=== PATIENT | male | born 1935 | race Caucasian/White ===

== ENCOUNTER 2017-02-08 13:45 | Emergency (ER) | payer MEDICARE ==
[~2017-02-08] VITALS: Ht 175.3 cm; Wt 66.0 kg
[2017-02-08 14:00] VITALS: BP 189/93; PULSE 78; RESP 18; TEMP 98; O2SAT 100
[2017-02-08] MEDS ORDERED: ACETAMINOPHEN/HYDROcodone 325 MG/5 MG TAB PO ONE (14:00)
[2017-02-08] MEDS ORDERED: NORC5TAB PO (14:04)
[2017-02-08] MEDS ORDERED: CANEMIS (14:06)
--- NOTE | 2017-02-08 14:06 | PD ---
HPI Chief Complaint: Hip Injury Time Seen by Provider: 13:50 Travel History International Travel<30 days: No Contact w/Intl Traveler<30days: No History of Present Illness HPI Patient is a pleasant 81-year-old male here with complaint of right sided hip pain. Patient has been on vacation, travel in the [place] in a [place]. States that he's been doing a lot of sitting. Today he's been having posterior right sided hip pain that radiates down the buttock and posterior leg. When he went to get out of the RV at his rest stop, he was unable to get up due to the pain prompting EMS to be called. En route, they did not notice any deformity. Patient was given 8 mg morphine IV with improvement of his symptoms. He denies any recent falls, trauma. He does note some burning type numbness in the posterior buttock/leg. PFSH Past Medical History High Cholesterol: Yes Chest Pain: Yes Hypertension: Yes Past Surgical History Cardiac Surgery: Yes Social History Tobacco Use: No Allergies-Medications (Allergen,Severity, Reaction): Coded Allergies: No Known Allergies (Unverified , 02/08/17) Review of Systems Except as stated in HPI: all other systems reviewed are Neg Physical Exam Narrative GENERAL: Pleasant thin elderly male in no acute distress SKIN: Focused skin assessment warm/dry. HEAD: Normocephalic. EYES: No scleral icterus. No injection or drainage. ENT: . Mucous membranes pink and moist. NECK: Supple CARDIOVASCULAR: Regular rate and rhythm. RESPIRATORY: No accessory muscle use. MUSCULOSKELETAL: No midline tenderness to palpation of the spine. Patient has posterior tenderness over the SI joint which reproduces his symptoms. There is no obvious deformity, edema. Range of motion at the hip really does not exacerbate pain much, but a straight leg raise certainly does. Distal sensation , pulses intact. Patient able to ambulate without assistance in the ER. NEUROLOGICAL: Awake and alert. Motor grossly within normal limits. Normal speech. PSYCHIATRIC: Appropriate mood and affect; insight and judgment normal. Data Data Orders Acetamin-Hydrocod 325-5 Mg ([place] 5-325 (02/08/17 14:00) [facility] Medical Decision Making Medical Screen Exam Complete: Yes Emergency Medical Condition: Yes Medical Record Reviewed: Yes Differential Diagnosis Patient is a 81-year-old male with right sided hip pain after prolonged sitting. His exam is consistent with sciatica. There is no fall or trauma to suggest hip fracture, pelvic fracture or dislocation. Narrative Course Patient was given [place] in the ER and able to ambulate independently and will be discharged home. Diagnosis Primary Impression: Right sided sciatica Referrals: Primary Care Physician as needed Patient Instructions: General Instructions, Sciatica (ED) Additional Instructions: Tylenol, ibuprofen as needed for mild pain. [place] as needed for severe pain. Cane as needed to assist with gait. Med/Other Pt SpecificInfo: Prescription(s) given Scripts Cane/Mens 1 Mis Mis #1 Ea .route As Directed Prov:Sylvia Mendez MD 02/08/17 Hydrocodone-Acetaminophen ([place])5-325 mg Tab1-2 Tab PO Q6H PRN (PAIN) #20 TAB Ref 0 Prov:Sylvia Mendez MD 02/08/17 Disposition: 01 DISCHARGE HOME Condition: Stable Sylvia Mendez MD Feb 08, 2017 14:06
[2017-02-08] MEDS ORDERED: ATOR10TA15 PO (14:18)
[2017-02-08] MEDS ORDERED: ZETI10TA5 PO (14:18)
[2017-02-08] MEDS ORDERED: PLAV75TA29 PO (14:18)
== END 2017-02-08 14:57 | disposition home or self-care (01) ==
LOC: PHED 13:45
DX: M54.31 Sciatica, right side (principal); E78.00 Pure hypercholesterolemia, unspecified; I10 Essential (primary) hypertension
CPT/HCPCS: 99283